=== PATIENT | female | born 1995 | race Caucasian/White ===

== ENCOUNTER → 2020-07-12 11:41 | Outpatient (CLI) | payer OTHER, SELFPAY ==
[2020-07-15 04:24] LABS: V-Zoster IgG (Immunity) 202 index (Immune >165)
== END ==
DX: Z01.84 Encounter for antibody response examination (principal)
CPT/HCPCS: 36415; 86787

== ENCOUNTER 2021-09-06 18:13 | Emergency (ER) | payer OTHER, SELFPAY ==
--- NOTE | 2021-09-06 15:00 | RAD_ITS ---
STUDY: X-RAY CHEST REASON FOR EXAM: Female, 26 years old. Chest pain TECHNIQUE: Single AP portable upright view of the chest on 2 images. COMPARISON: None. FINDINGS: The lungs are clear and expanded. There is no demonstrated pleural abnormality. Normal size heart. Normal mediastinum and matt. Normal visualized pulmonary arteries. Normal visualized aortic arch and descending thoracic aorta. Normal visualized thoracic spine. Normal visualized ribs, clavicles, and shoulders. There is no demonstrated abnormality of the visualized soft tissue structures of the upper abdomen. RAD/Chest 1 View (Portable) IMPRESSION: Normal x-ray examination of the chest. Electronically Signed: Yusef Arcos MD at 21:10 EST ,
--- NOTE | 2021-09-06 18:16 | EKG12_ITS ---
Test Reason : PALP Blood Pressure : / mmHG Vent. Rate : 081 BPM Atrial Rate : 081 BPM P-R Int : 124 ms QRS Dur : 080 ms QT Int : 364 ms P-R-T Axes : 026 043 037 degrees QTc Int : 422 ms Sinus rhythm with marked sinus arrhythmia Otherwise normal ECG No previous ECGs available Confirmed by JEFRY COSTELLO, SUNI ([id number]), photographic editor YASMANI LI ([id number]) on 09/10/2021 8:13:33 AM Referred By: DONAVAN Confirmed By:SUNI CAPPS MD
--- NOTE | 2021-09-06 22:13 | EDS_ITS ---
DATE OF SERVICE 09/06/21 CHIEF COMPLAINT: Palpitations. HISTORY OF PRESENT ILLNESS: This is a 26-year-old female who presents with rapid heartbeat that began yesterday. The patient states that it has been intermittent since last night. The patient states that it has gradually gotten worse. She admits to some pressure in her chest. The patient states that her symptoms are worse when she lies down and better when she is ambulating and moving around. The patient states that she checked her blood pressure at home and it was 144/90. The patient denies any shortness of breath or cough. She admits to some nausea, but denies vomiting. PAST MEDICAL HISTORY: Anxiety. PAST SURGICAL HISTORY: Appendectomy. CURRENT MEDICATIONS: None. ALLERGIES: No known drug allergies. SOCIAL HISTORY: The patient denies smoking. Denies alcohol or drug use. REVIEW OF SYSTEMS: GENERAL: The patient admits to some subjective chills, but denies any fever. EYES: The patient denies blurry vision or diplopia. ENT: The patient denies any sore throat or rhinorrhea. CARDIOVASCULAR: Denies admits to some chest pain and palpitations as stated in the chief complaint. RESPIRATORY: The patient denies any shortness of breath or cough. GI: The patient denies admits to nausea but denies vomiting. : The patient denies dysuria or hematuria. MUSCULOSKELETAL: The patient admits to back pain, but denies neck pain. SKIN: The patient admits to rash but denies boils or abscess. NEUROLOGIC: The patient denies any headache or weakness. ALLERGIES: The patient denies hives or swelling. PHYSICAL EXAMINATION: GENERAL: No acute distress. VITAL SIGNS: Stable. HEENT: Oral mucosa is pink and moist. NECK: Supple. Trachea is midline. No JVD or lymphadenopathy. LUNGS: Clear and equal bilaterally. HEART: Regular rate and rhythm. ABDOMEN: Soft and nontender. EXTREMITIES: Intact. There is no calf tenderness or edema. NEUROLOGIC: Cranial nerves II-XII are intact. There are no focal motor or sensory deficits noted. DIAGNOSTIC DATA: EKG shows normal sinus rhythm. There are no acute ST or T wave changes. Portable chest x-ray, one view, on my interpretation, there is no acute cardiopulmonary process. No cardiomegaly. Bony thorax is normal. Radiology also interpreted the x-ray and agrees. CBC shows a mild leukocytosis of 12.0, platelets normal. BMP was obtained and was essentially within normal limits. High sensitivity troponin was obtained and was 3. EMERGENCY DEPARTMENT COURSE AND MEDICAL DECISION MAKING: The patient was advised of the findings. The patient has a HEART score of 0. The patient was advised that this is low risk for acute cardiac event. IMPRESSION: Palpitations. DISPOSITION/PLAN: The patient is instructed to follow up with her primary care physician in 5-7 days. The patient is instructed to return if worse in any way. The patient understood and was agreeable with the plan. All questions were answered. The patient is discharged in stable condition.
[2021-09-07 08:37] LABS: Absolute Lymphocyte Count 3.15 X10^3/uL (0.83-4.51); Absolute Neutrophil Count 7.8 X10^3/uL (2.0-7.7); Basophil# 0.05 X10^3/uL; Basophil% 0.4 % (0-1); Eosinophil# 0.12 X10^3/uL; Hematocrit 37.8 % (37-47); Hemoglobin 13.3 g/dL (12.0-15.0); Lymphocyte # 3.15 X10^3/ul (0.83-4.51); Lymphocyte % 26.2 % (19-41); Mean Corp Hgb Conc 35.2 g/dL (32-36); Mean Corpuscular Hgb 30.2 pg (27.0-32.0); Mean Corpuscular Volume 85.9 fL (81-99); Mean Platelet Vol. 11.8 fl (6.2-12.0); Monocyte% 7.5 % (0-10); NRBC Flagged by Analyzer 0 % (0-5); Neutrophil # 7.77 X10^3/uL (2.7-7.7); Neutrophil % 64.7 % (47-70); Platelet Count 348 K/mm3 (150-450); RBC Distribution Width CV 12.4 % (11.6-14.6); RBC Distribution Width SD 39.3 fl (35.1-43.9)
[2021-09-07 11:49] LABS: Glucose 120 mg/dL (74-106)
[2021-09-07 11:50] LABS: Anion Gap 7 (5-15); BUN 12 mg/dL (7-18); BUN/Creat Ratio 12.4 RATIO (10-20); Calcium,Total 8.8 mg/dL (8.5-10.1); Chloride 106 mmol/L (98-107); Creatinine, Serum 0.97 mg/dL (0.55-1.02); EST Glomerular Filtration Rate 73 mL/min (>60); Est Glom Filt Rate - Afr Amer 88 mL/min (>60); Potassium 3.6 mmol/L (3.5-5.1); Sodium Level 139 mmol/L (136-145); Troponin-I HS 3 pg/mL (3.0-54.0)
== END 2021-09-06 22:26 | disposition home or self-care (01) ==
LOC: ED 20:24
PROVIDERS: Emergency Provider Emergency Medicine; Visit Provider Emergency Medicine
DX: R00.2 Palpitations (principal)
CPT/HCPCS: 71045; 80048; 84484; 85025; 93005; 99285; A4216

== ENCOUNTER → 2022-02-04 | Outpatient (CLI) | payer OTHER, SELFPAY ==
[2022-02-04 12:42] LABS: Prothrombin Time (Protime)PT. 12.4 SECONDS (11.7-14.9)
== END | disposition home or self-care (01) ==
LOC: LABSPEC 12:14
PROVIDERS: Referring Provider Nurse Practitioner Family; Visit Provider Nurse Practitioner Family
DX: R58 Hemorrhage, not elsewhere classified (principal)
CPT/HCPCS: 85610